=== PATIENT | female | born 2000 | race Caucasian/White ===

== ENCOUNTER 2024-07-28 16:56 | Emergency (ER) | payer OTHER ==
[~2024-07-28] VITALS: Ht 147.3 cm; Wt 62.7 kg
[2024-07-28 17:19] VITALS: TEMP 97.6
[2024-07-28] MEDS: TraMADol HCL 50 MG TABLET PO ONE (21:23)
[2024-07-28 21:30] VITALS: BP 118/63; PULSE 73; RESP 18; O2SAT 98
== END 2024-07-28 22:24 | disposition home or self-care (01) ==
LOC: EMS 16:56
DX: M77.8 Other enthesopathies, not elsewhere classified (principal); X50.0XXA Overexertion from strenuous movement or load, initial encounter
CPT/HCPCS: 99283